=== PATIENT | male | born 1970 | race Caucasian/White ===

== ENCOUNTER 2024-10-09 21:23 | Emergency (ER) | payer OTHER ==
[~2024-10-09] VITALS: Ht 170.2 cm; Wt 75.0 kg
[2024-10-09 21:25] VITALS: O2SAT 100
[2024-10-09] MEDS: ONDANSETRON HCL 4MG/2ML INJ IV STA (21:42)
[2024-10-09] MEDS ORDERED: MORPHINE SULFATE 4 MG/ML INJ (FOR IV/IM USE) IV STA (21:42)
[2024-10-09 22:19] LABS: BASOPHILS % 0.2 % (0.0-2.0); EOSINOPHILS % 0.2 % (0.0-5.0); HEMATOCRIT. 38.5 % (42.0-52.0); HEMOGLOBIN. 13.2 g/dL (14.0-18.0); LYMPHOCYTES % 23.5 % (20.0-50.0); MEAN CORPUSCULAR HEMOGLOBIN 32.5 pg (28.0-32.0); MEAN CORPUSCULAR HGB CONC 34.3 g/dL (31.0-37.0); MEAN CORPUSCULAR VOLUME 94.8 fL (80.0-94.0); MEAN PLATELET VOLUME 8.1 fl (7.4-10.4); MONOCYTES % 5.6 % (2.0-8.0); NEUTROPHILS % 70.5 % (40.0-76.0); PLATELET 236 x1000/uL (130-400); RED BLOOD CELL COUNT 4.06 mill/uL (4.7-6.1); RED CELL DISTRIBUTION WIDTH 13.6 % (11.6-14.6); WHITE BLOOD COUNT 15.5 x1000/uL (4.5-11.0)
[2024-10-09 22:32] LABS: CHLORIDE 103 mEq/L (98-107); POTASSIUM 3.3 mEq/L (3.5-5.1); SODIUM 138 mEq/L (136-145)
[2024-10-09 22:33] LABS: CARBON DIOXIDE 27 mEq/L (21-32)
[2024-10-09 22:38] LABS: CREATININE 0.9 mg/dL (0.6-1.3); GLUCOSE 160 mg/dL (70-105); UREA NITROGEN BLOOD 23 mg/dL (9-23)
[2024-10-09] MEDS: SODIUM CHLORIDE 0.9% 1,000 ML IV ONE (23:11)
[2024-10-09] MEDS: MORPHINE SULFATE 4 MG/ML INJ (FOR IV/IM USE) IV NR (23:11)
[2024-10-09] MEDS ORDERED: ONDANSETRON HCL 4MG/2ML INJ IV NR (23:15)
[2024-10-09 23:20] VITALS: BP 140/80; PULSE 57; RESP 16; TEMP 36.78072; O2SAT 100
[2024-10-09] MEDS ORDERED: IOHEXOL-300 100 ML BOTTLE ONE (23:49)
== END 2024-10-09 23:37 | disposition short-term general hospital (02) ==
LOC: ER 21:23
DX: S32.048A Other fracture of fourth lumbar vertebra, initial encounter for closed fracture (principal); S32.10XA Unspecified fracture of sacrum, initial encounter for closed fracture; S12.600A Unspecified displaced fracture of seventh cervical vertebra, initial encounter for closed fracture; G31.89 Other specified degenerative diseases of nervous system; V13.4XXA Pedal cycle driver injured in collision with car, pick-up truck or van in traffic accident, initial encounter; Y93.89 Activity, other specified; Y92.89 Other specified places as the place of occurrence of the external cause; Y99.8 Other external cause status
CPT/HCPCS: 99291; 70450; 96374; 71045; 96375; 80048; 85025; 86850; 86900; 86901; 36415; 73120; 71260; 72125; 74177; Q9967; J2405; J2270; J7030